=== PATIENT | female | born 1960 | race Caucasian/White ===

== ENCOUNTER 2020-11-21 12:22 | Outpatient (RCR) | payer BC, SELFPAY | END 2020-12-01 23:59 | disposition home or self-care (01) | LOC: SR3 12:22 | PROVIDERS: Family Provider Nurse Practitioner Family; Referring Provider Nurse Practitioner Family; Visit Provider Nurse Practitioner Family | DX: R53.81 Other malaise (principal); R26.9 Unspecified abnormalities of gait and mobility; C83.30 Diffuse large B-cell lymphoma, unspecified site | CPT/HCPCS: 92507; 96125; 97110; 97162; 97167; 97530 ==

== ENCOUNTER 2020-12-02 06:00 | Outpatient (RCR) | payer BC, SELFPAY | END 2021-01-01 23:59 | disposition home or self-care (01) | LOC: SR3 06:00 | PROVIDERS: Family Provider Nurse Practitioner Family; Referring Provider Nurse Practitioner Family; Visit Provider Nurse Practitioner Family | DX: C83.30 Diffuse large B-cell lymphoma, unspecified site (principal); R41.841 Cognitive communication deficit; R53.81 Other malaise; R26.89 Other abnormalities of gait and mobility | CPT/HCPCS: 92507; 97110; 97112; 97116; 97164; 97530; 97535 ==

== ENCOUNTER 2021-01-02 06:00 | Outpatient (RCR) | payer BC, SELFPAY | END 2021-01-31 23:59 | disposition home or self-care (01) | LOC: SR3 06:00 | PROVIDERS: Family Provider Nurse Practitioner Family; Referring Provider Nurse Practitioner Family; Visit Provider Nurse Practitioner Family | DX: C83.30 Diffuse large B-cell lymphoma, unspecified site (principal); R41.841 Cognitive communication deficit; R53.81 Other malaise; R26.9 Unspecified abnormalities of gait and mobility | CPT/HCPCS: 92507; 97110; 97164; 97530; 97535 ==

== ENCOUNTER 2021-02-01 06:00 | Outpatient (RCR) | payer BC, SELFPAY | END 2021-03-03 23:59 | disposition home or self-care (01) | LOC: SR3 06:00 | PROVIDERS: Family Provider Nurse Practitioner Family; Referring Provider Nurse Practitioner Family; Visit Provider Nurse Practitioner Family | DX: C83.30 Diffuse large B-cell lymphoma, unspecified site (principal); R41.841 Cognitive communication deficit | CPT/HCPCS: 92507; 97110; 97112; 97168 ==

== ENCOUNTER 2021-03-04 06:00 | Outpatient (RCR) | payer BC, SELFPAY | END 2021-04-02 23:59 | disposition home or self-care (01) | LOC: SR3 06:00 | PROVIDERS: Visit Provider Nurse Practitioner Family | DX: C83.30 Diffuse large B-cell lymphoma, unspecified site (principal); R41.841 Cognitive communication deficit | CPT/HCPCS: 92507; 97112; 97168 ==

== ENCOUNTER 2021-04-03 06:00 | Outpatient (RCR) | payer BC, SELFPAY | END 2021-05-03 23:59 | disposition home or self-care (01) | LOC: SR3 06:00 | PROVIDERS: Visit Provider Nurse Practitioner Family | DX: R41.841 Cognitive communication deficit (principal) | CPT/HCPCS: 92507 ==

== ENCOUNTER 2021-05-04 06:00 | Outpatient (RCR) | payer BC, SELFPAY | END 2021-06-03 23:59 | disposition home or self-care (01) | LOC: SR3 06:00 | PROVIDERS: Visit Provider Nurse Practitioner Family | DX: R41.841 Cognitive communication deficit (principal) | CPT/HCPCS: 92507 ==

== ENCOUNTER 2021-05-31 06:00 | Outpatient (RCR) | payer BC, SELFPAY | END 2021-06-03 23:59 | disposition home or self-care (01) | LOC: SPT 06:00 | PROVIDERS: Referring Provider Nurse Practitioner Family; Visit Provider Nurse Practitioner Family | DX: R29.898 Other symptoms and signs involving the musculoskeletal system (principal); R53.81 Other malaise; R26.9 Unspecified abnormalities of gait and mobility | CPT/HCPCS: 97162 ==

== ENCOUNTER 2021-06-04 06:00 | Outpatient (RCR) | payer BC, SELFPAY | END 2021-07-01 23:59 | disposition home or self-care (01) | LOC: SR3 06:00 | PROVIDERS: Visit Provider Nurse Practitioner Family | DX: R41.841 Cognitive communication deficit (principal) | CPT/HCPCS: 92507 ==

== ENCOUNTER 2021-06-04 06:00 | Outpatient (RCR) | payer BC, SELFPAY | END 2021-07-01 23:59 | disposition home or self-care (01) | LOC: SPT 06:00 | PROVIDERS: Referring Provider Nurse Practitioner Family; Visit Provider Nurse Practitioner Family | DX: R29.898 Other symptoms and signs involving the musculoskeletal system (principal); R53.81 Other malaise; R26.9 Unspecified abnormalities of gait and mobility | CPT/HCPCS: 97110; 97112 ==

== ENCOUNTER 2021-07-02 06:00 | Outpatient (RCR) | payer BC, SELFPAY | END 2021-08-01 23:59 | disposition home or self-care (01) | LOC: SPT 06:00 | PROVIDERS: Referring Provider Nurse Practitioner Family; Visit Provider Nurse Practitioner Family | DX: R29.898 Other symptoms and signs involving the musculoskeletal system (principal); R53.81 Other malaise; R26.9 Unspecified abnormalities of gait and mobility | CPT/HCPCS: 97110; 97112 ==

== ENCOUNTER 2021-07-02 06:00 | Outpatient (RCR) | payer BC, SELFPAY | END 2021-08-01 23:59 | disposition home or self-care (01) | LOC: SR3 06:00 | PROVIDERS: Visit Provider Nurse Practitioner Family | DX: R41.841 Cognitive communication deficit (principal) | CPT/HCPCS: 92507 ==